=== PATIENT | female | born 1950 | race Caucasian/White ===

== ENCOUNTER 2017-08-14 11:18 | Emergency (ER) | payer OTHER, MEDICARE ==
[~2017-08-14] VITALS: Ht 170.2 cm; Wt 113.0 kg
[2017-08-14 11:24] VITALS: BP 155/87; PULSE 87; RESP 16; TEMP 98.5; O2SAT 100
[2017-08-14] MEDS ORDERED: PHEN-556 PO (11:57)
[2017-08-14] MEDS ORDERED: ASPI-183 PO (11:57)
[2017-08-14] MEDS ORDERED: MAPA500T PO (11:57)
[2017-08-14] MEDS ORDERED: CITA40TA4 PO (11:57)
[2017-08-14] MEDS ORDERED: VITA2000 PO (11:57)
[2017-08-14] MEDS ORDERED: OXYB5TAB8 PO (11:57)
[2017-08-14] MEDS ORDERED: CELE200C PO (11:57)
[2017-08-14] MEDS ORDERED: DOCU1CAP66 (11:57)
--- NOTE | 2017-08-14 12:33 | PD ---
HPI Chief Complaint: GI Complaint Time Seen by Provider: 12:27 Travel History International Travel<30 days: No Contact w/Intl Traveler<30days: No Traveled to known affect area: No History of Present Illness HPI This 67-year-old female is complaining of constipation. She had a hip replacement done the end of June. She went to a health and rehabilitation facility afterwards. She was on pain meds until August 06. She stopped her pain meds and then he did develop some diarrhea around 31 July and was given Imodium since having Imodium she has not had a good bowel movement. She has been using an [id number] stool softener as well as bisacodyl. He is feeling that her abdomen is distended and bloated. He is not been any vomiting. PFSH Past Medical History Hx Anticoagulant Therapy: Yes (325MG. ASA DAILY) Cardiovascular Problems: Yes (CATH) Diminished Hearing: No Tetanus Vaccination: Unknown ?: Not Tubal Ligation: Yes Past Surgical History Cholecystectomy: Yes Hysterectomy: Yes Other Surgery: Yes (BOWEL PERF DURING COLONOSCOPY , BUNIONECTOMY) Social History Alcohol Use: Yes (RARE) Tobacco Use: No Substance Use: No Allergies-Medications (Allergen,Severity, Reaction): Coded Allergies: nitrofurantoin (Verified Allergy, Severe, 08/14/17) Reported Meds & Prescriptions Reported Meds & Active Scripts Active Reported Stool Softener (Docusate Sodium) 100 Mg Cap Mapap (Acetaminophen) 500 Mg Tab 500 Mg PO Q4-6H PRN Aspirin 325 Mg Tab 325 Mg PO DAILY Vitamin D3 (Cholecalciferol) 2,000 Unit Cap 2,000 Units PO DAILY Lomaira (Phentermine HCl) 8 Mg Tab 37.5 Mg PO DAILY Citalopram (Citalopram Hydrobromide) 40 Mg Tab 40 Mg PO DAILY Ditropan (Oxybutynin Chloride) 5 Mg Tab 5 Mg PO Q12HR Celebrex (Celecoxib) 200 Mg Cap 200 Mg PO BID Review of Systems General / Constitutional: No: Fever, Chills Eyes: No: Diploplia, Blurred Vision HENT: No: Headaches, Vertigo Cardiovascular: No: Chest Pain or Discomfort Respiratory: No: Cough Gastrointestinal: Positive: Constipation, No: Vomiting, Diarrhea Genitourinary: No: Urgency Skin: No Rash Physical Exam Narrative GENERAL: Well-developed female SKIN: Focused skin assessment warm/dry. HEAD: Atraumatic. Normocephalic. EYES: Pupils equal and round. No scleral icterus. No injection or drainage. ENT: No nasal bleeding or discharge. Mucous membranes pink and moist. NECK: Trachea midline. No JVD. GASTROINTESTINAL: Abdomen soft, non-tender, nondistended. Hepatic and splenic margins not palpable. On rectal exam there is minimal stool felt. There are no masses. Stool is brown and guaiac negative MUSCULOSKELETAL: No obvious deformities. No clubbing. No cyanosis. No edema. NEUROLOGICAL: Awake and alert. No obvious cranial nerve deficits. Motor grossly within normal limits. Normal speech. PSYCHIATRIC: Appropriate mood and affect; insight and judgment normal. Data Data Last Documented VS Vital Signs Date Time Temp Pulse Resp B/P (MAP) Pulse Ox O2 Delivery O2 Flow Rate FiO2 08/14/17 11:24 98.5 87 16 155/87 (109) 100 MDM Medical Decision Making Medical Screen Exam Complete: Yes Emergency Medical Condition: Yes Medical Record Reviewed: Yes Differential Diagnosis Patient has constipation most likely related to use of opiates which she is not on now. I will prescribe citrate of magnesium and recommend she use that first. I will prescribe some GoLYTELY in case the magnesium is not effective Narrative Course Patient is stable for discharge Diagnosis Primary Impression: Constipation Scripts Peg-Electrolytes (Golytely 236 gm) 4,000 Ml Soln 4000 ML PO ONCE for Bowel Cleanser, #1 CONTAINER 0 Refills Prov: Anurag Luu MD 08/14/17 Magnesium Citrate Liq (Citrate of Magnesia Liq) 300 Ml Liq 300 ML PO DIRECTED, #1 BOTTLE 0 Refills Prov: Anurag Luu MD 08/14/17 Disposition: 01 DISCHARGE HOME Condition: Stable Anurag Luu MD Aug 14, 2017 12:33
[2017-08-14] MEDS ORDERED: COLY4000S PO (12:56)
[2017-08-14] MEDS ORDERED: MAGN1SOL2 PO (12:56)
[2017-08-14 13:20] VITALS: BP 142/62
== END 2017-08-14 13:21 | disposition home or self-care (01) ==
LOC: PHED 11:18
DX: K59.00 Constipation, unspecified (principal); R14.0 Abdominal distension (gaseous); Z79.01 Long term (current) use of anticoagulants
CPT/HCPCS: 99283